=== PATIENT | female | born 1965 | race Caucasian/White ===

== ENCOUNTER 2016-03-08 05:55 | Day surgery (SDC) | payer BC, OTHER ==
[2016-03-08] MEDS ORDERED: Lactated Ringers 1,000 ML IV SCH (06:30)
[2016-03-08] MEDS ORDERED: DIPRIVAN 200 MG/20 ML IV ONE (08:00)
[2016-03-08] MEDS ORDERED: Ketamine HCl 50 MG/ML IV ONE (08:00)
[2016-03-08 08:21] VITALS: PULSE 64
--- NOTE | 2016-03-08 08:32 | OP ---
SURGERY DATE: 03/08/16 SURGERY TIME: 714 PREOPERATIVE DIAGNOSIS: 1. SCREENING EXAM. POSTOPERATIVE DIAGNOSIS: 1. NORMAL COLON. PROCEDURE: 1. Colonoscopy. SURGEON: Dr. Dowd. ANESTHESIA: MAC, medications given by the Anesthesia Department. BRIEF HISTORY: The patient is a 50 y/o WF presenting now for screening examination. She was appraised of the risks of the procedure including the risk of perforation, phlebitis, untoward reaction to medication, bleeding, and missed lesions. The patient verbalized her understanding and desired to have the procedure performed. DESCRIPTION OF PROCEDURE: The patient was given the medications by the Anesthesia Department. She had continuous pulse oximetry, ECG monitoring, intermittent BP monitoring, and end tidal CO2 monitoring during the examination. She was placed in the left lateral decubitus position. A digital rectal examination was performed and revealed normal anal sphincter tone and no masses. The flexible Olympus pediatric colonoscope was used to intubate the rectum. A view of the colon was developed sequentially to the cecum. Upon insertion and withdrawal, including a retroflex view in the rectum, no mucosal lesions were encountered. The scope was removed from the patient who tolerated the procedure well and was sent back to OP recovery in good condition. The prep was noted to be fair to good.
[2016-03-08 09:14] VITALS: BP 138/72; O2SAT 99
== END 2016-03-08 08:50 | disposition home or self-care (01) ==
LOC: SDC 05:55
PROVIDERS: ATTEND Family Medicine
PROC: 0DJD8ZZ Inspection of Lower Intestinal Tract, Via Natural or Artificial Opening Endoscopic (ICD-10-PCS; principal; 2016-03-08)
DX: Z12.11 Encounter for screening for malignant neoplasm of colon (principal)
CPT/HCPCS: 00810; J2704

== ENCOUNTER 2022-05-28 06:37 | Day surgery (SDC) | payer BC ==
[2022-05-28] MEDS ORDERED: Lactated Ringers 1,000 ML IV ONE (07:06)
[2022-05-28 07:11] VITALS: O2SAT 96
[2022-05-28] MEDS ORDERED: Lactated Ringers 1,000 ML IV SCH (07:30)
[2022-05-28] MEDS ORDERED: DIPRIVAN 200 MG/20 ML IV ONE (07:54)
[2022-05-28] MEDS ORDERED: Xylocaine-Mpf 2% 5 Ml Vial ONE (07:54)
[2022-05-28] MEDS ORDERED: Versed 2 MG/2 ML Injection ONE (07:55)
--- NOTE | 2022-05-28 08:39 | OP ---
SURGERY DATE/TIME: 05/28/2022 PREOPERATIVE DIAGNOSIS: Screening exam. POSTOPERATIVE DIAGNOSIS: Normal colon. PROCEDURE: Colonoscopy. SURGEON: Dr. Dwod. ANESTHESIA: MAC. Medications given by anesthesia department. HISTORY: The patient is a 56-year-old white female presenting now for screening colonoscopy. She reports she had a colonoscopy approximately nine years ago which was normal. The patient was felt the need to have endoscopic evaluation. She was appraised of the risks of the procedure including the risk of perforation, phlebitis, untoward reaction to medication, bleeding and missed lesions. The patient verbalized her understanding and desired to have the procedure performed. DESCRIPTION OF PROCEDURE: The patient was given the medications by the anesthesia department. She had continuous pulse oximetry, ECG monitoring and intermittent blood pressure monitoring during the examination. She was placed in the left lateral decubitus position. A digital rectal examination was performed and revealed normal anal sphincter tone and no masses. The flexible Olympus pediatric colonoscope was used to intubate the rectum. A view of the colon was developed sequentially to the cecum including a short distance in the terminal ileum. Upon insertion and withdrawal, including a retroflex view in the rectum, no mucosal lesions were encountered. The scope was removed from the patient who tolerated the procedure well and was sent back to OP recovery in good condition. The prep was noted to be fair to good.
[2022-05-28 08:50] VITALS: BP 128/81; PULSE 68
== END 2022-05-28 09:05 | disposition home or self-care (01) ==
LOC: SDC 06:37
PROVIDERS: ATTEND Family Medicine
DX: Z12.11 Encounter for screening for malignant neoplasm of colon (principal)
CPT/HCPCS: J2250; J2704